=== PATIENT | male | born 2000 | race Caucasian/White ===

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

== ENCOUNTER → 2025-09-25 12:35 | Outpatient (CLI) | payer OTHER, SELFPAY ==
[2025-09-25 15:10] LABS: HIV 1 & 2 Ab/Ag 4th Gen Combo NEGATIVE (NEGATIVE); Hep C Virus Ab w/Reflex Quant NEGATIVE s/c (NEGATIVE)
[2025-09-25 15:17] LABS: Urine N gonorrhoeae NOT DETECTED
[2025-09-25 16:30] LABS: Urine Chlamydia NOT DETECTED
[2025-09-27 14:08] LABS: HSV 1 DNA Negative (Negative); HSV 2 DNA Negative (Negative)
== END ==
PROVIDERS: Referring Provider Chiropractor; Visit Provider Chiropractor
DX: Z11.3 Encounter for screening for infections with a predominantly sexual mode of transmission (principal)
CPT/HCPCS: 36415; 86592; 86803; 87350; 87389; 87491; 87529; 87591

== ENCOUNTER → 2025-10-17 13:39 | Outpatient (CLI) | payer OTHER, SELFPAY | PROVIDERS: Visit Provider Chiropractor | DX: R07.0 Pain in throat (principal) | CPT/HCPCS: 87070; 87147 ==